=== PATIENT | male | born 1945 | race Caucasian/White ===

== ENCOUNTER → 2019-04-07 | Outpatient (CLI) | payer MEDICARE, OTHER ==
[~2019-04-07] MED LIST: ALBU90AE INH; ASCO100019 PO; BIOT25005 PO; CELE200C PO; CHOL5000 PO; CYAN1TAB29 PO; EMPA10TA PO; INSU100I13 SC; METF500T17 PO; MULT-717 PO; PANT40TA5 PO; PITA4TAB2 PO; POTA99TA2 PO; RAMI5CAP57 PO; TEST75GE TP; TICA60TA PO; UBID1CAP43 PO; [UNRECOGNIZED DRUG - CODE] PO; [UNRECOGNIZED DRUG - OTHER] PO; curcumin PO
[2019-04-07 11:26] LABS: BASOPHILS # (AUTO) 0.03 x10^3/uL (0-0.1); BASOPHILS % (AUTO) 1 % (0-1); EOSINOPHILS % (AUTO) 4 % (1-7); LYMPHOCYTES # (AUTO) 0.89 x10^3/uL (1-3.4); LYMPHOCYTES % (AUTO) 17 % (22-44); MD NO; MEAN CORPUSCULAR HEMOGLOBIN 30.9 pg (27.5-34.5); MEAN CORPUSCULAR HGB CONC 32.5 g/dL (33.2-36.2); MEAN CORPUSCULAR VOLUME 95.2 fL (81-97); MEAN PLATELET VOLUME 8.2 fL (7.4-10.4); MONOCYTES # (AUTO) 0.49 x10^3/uL (0.2-0.8); MONOCYTES % (AUTO) 9 % (2-9); NEUTROPHILS # (AUTO) 3.71 x10^3/uL (1.8-6.8); NEUTROPHILS % (AUTO) 70 % (42-75); PLATELET COUNT 247 x10^3/uL (130-400); RED BLOOD COUNT 5.38 x10^6/uL (4.38-5.82); RED CELL DISTRIBUTION WIDTH 16.1 % (9.4-14.8)
[2019-04-07 11:33] LABS: INTERNATIONAL NORMALIZED RATIO 1.02 (0.93-1.1); PROTHROMBIN TIME 10.7 Seconds (9.6-11.5)
[2019-04-07 11:35] LABS: ALANINE AMINOTRANSFERASE 23 U/L (12-78); ALBUMIN 3.9 g/dL (3.4-5.0); ANION GAP 6 mmol/L (5-15); CALCIUM 9.1 mg/dL (8.5-10.1); CHLORIDE 107 mmol/L (98-107); CREATININE 1.05 mg/dL (0.7-1.3)
[2019-04-07 11:37] LABS: ALKALINE PHOSPHATASE 57 U/L (45-117); BILIRUBIN,TOTAL 0.5 mg/dL (0.2-1.0); TOTAL PROTEIN 7.2 g/dL (6.4-8.2)
[2019-04-07 12:29] LABS: HEMOGLOBIN A1C 7.7 % (4.2-6.3)
== END | disposition home or self-care (01) ==
LOC: STAR 10:06
PROVIDERS: ATTEND Orthopaedic Surgery
DX: T84.84XS Pain due to internal orthopedic prosthetic devices, implants and grafts, sequela (principal); M25.552 Pain in left hip; Z96.652 Presence of left artificial knee joint
CPT/HCPCS: 36415; 80053; 83036; 85025; 85610; 85730; 87081; 87389; 93005

== ENCOUNTER 2019-04-17 07:30 | Inpatient (IN) | payer MEDICARE, OTHER ==
[~2019-04-17] VITALS: Ht 175.3 cm; Wt 73.2 kg
[2019-04-17] MEDS ORDERED: KETOROLAC 60 MG/2 ML ONE (10:21)
[2019-04-17] MEDS ORDERED: TRANEXAMIC ACID 100 MG/ML, 10ML ONE ×4 (10:22)
[2019-04-17] MEDS ORDERED: EPINEPHRINE 1 MG/ML, 1ML ONE (10:22)
[2019-04-17] MEDS ORDERED: VANCOMYCIN 1,000 MG ONE (10:22)
[2019-04-17] MEDS ORDERED: SODIUM CHLORIDE 0.9% 50 ML ONE (10:22)
[2019-04-17] MEDS ORDERED: ROPIvacaine/PF 0.2%, 20 ML ONE ×2 (10:25→14:17)
[2019-04-17 13:12] VITALS: BP 147/70
[2019-04-17] MEDS ORDERED: LACTATED RINGERS 1,000 ML IV SCH (13:15)
[2019-04-17] MEDS ORDERED: VANCOMYCIN PER PHARMACY MC ONE (13:30)
[2019-04-17] MEDS ORDERED: ACETAMINOPHEN 500 MG TABLET PO ONE (13:30)
[2019-04-17] MEDS ORDERED: GABAPENTIN 300 MG CAPSULE PO ONE (13:30)
[2019-04-17] MEDS ORDERED: INSULIN REGULAR 100 UNITS/ML, 3ML VIAL SQ-INSULIN ONE (14:00)
[2019-04-17] MEDS ORDERED: VANCOMYCIN 1,300 MG in SODIUM CHLORIDE 0.9% 250 ML IV ONE (14:00)
[2019-04-17] MEDS ORDERED: INSULIN SINGLE DOSE, ER SQ-INSULIN ONE (14:05)
[2019-04-17] MEDS ORDERED: FENTANYL PF 250 MCG/5ML ONE ×2 (14:16→16:21)
[2019-04-17] MEDS ORDERED: MIDAZOLAM 1 MG/ML, 2ML ONE (14:16)
[2019-04-17] MEDS ORDERED: CEFAZOLIN 1,000 MG ONE (14:17)
[2019-04-17] MEDS ORDERED: GLYCOPYRROLATE 0.2MG/1ML, 5ML ONE (14:17)
[2019-04-17] MEDS ORDERED: ROCURONIUM 10MG/ML,5ML ONE (14:17)
[2019-04-17] MEDS ORDERED: PROPOFOL 10 MG/ML, 20ML ONE (14:17)
[2019-04-17] MEDS ORDERED: NEOSTIGMINE 1 MG/ML, 10ML ONE (14:17)
[2019-04-17] MEDS ORDERED: PROMETHAZINE 25 MG/ML, 1ML IV PRN (16:00)
[2019-04-17] MEDS ORDERED: MORPHINE SULFATE 4 MG/ML, 1ML IVPush PRN (16:00)
[2019-04-17] MEDS ORDERED: HALOPERIDOL 5 MG/ML IV PRN (16:00)
[2019-04-17] MEDS ORDERED: hydrALAzine 20 MG/ML, 1ML IV PRN (16:00)
[2019-04-17] MEDS ORDERED: LABETALOL 5MG/ML, 20ML IV PRN (16:00)
[2019-04-17] MEDS: INSULIN REGULAR 100 UNITS/ML, 3ML VIAL SQ-INSULIN SCH ×2 (16:00→22:42)
[2019-04-17] MEDS ORDERED: FENTANYL PF 100 MCG/2ML IV PRN (16:00)
[2019-04-17] MEDS ORDERED: POLYETHYLENE GLYCOL 17 GM PACKET PO PRN (16:00)
[2019-04-17] MEDS ORDERED: OXYcodone 5 MG/5 ML ORAL.SOL UDC PO PRN (16:00)
[2019-04-17] MEDS ORDERED: HYDROmorphone 2 MG/ML, 1ML IVPush PRN (16:00)
[2019-04-17] MEDS ORDERED: ONDANSETRON 2MG/ML, 2ML IV PRN (16:00)
[2019-04-17] MEDS ORDERED: PSYLLIUM PACKET PO PRN (16:00)
[2019-04-17] MEDS ORDERED: MEPERIDINE/PF 25MG/ML,1ML IVPush PRN (16:00)
[2019-04-17] MEDS ORDERED: KETOROLAC 30 MG/1 ML IV SCH (16:00)
[2019-04-17] MEDS ORDERED: PHENYLEPHRINE 10 MG/ML ONE (16:07)
[2019-04-17] MEDS ORDERED: METOPROLOL 1 MG/ML, 5ML ONE (16:59)
[2019-04-17] MEDS ORDERED: TRANEXAMIC ACID 1,000 MG in SODIUM CHLORIDE 0.9% 100 ML IVPB ONE (19:03)
[2019-04-17] MEDS ORDERED: hydrALAzine 20 MG/ML, 1ML ONE (19:05)
[2019-04-17] MEDS ORDERED: KETOROLAC 30 MG/1 ML ONE (19:05)
[2019-04-17] MEDS ORDERED: DIPHENHYDRAMINE 25 MG CAPSULE PO PRN (21:00)
[2019-04-17] MEDS ORDERED: LISINOPRIL 10 MG TABLET PO SCH (21:00)
[2019-04-17] MEDS ORDERED: PROMETHAZINE 25 MG/ML, 1ML IM PRN (21:00)
[2019-04-17] MEDS ORDERED: DIPHENHYDRAMINE 50 MG/ML, 1ML IVPush PRN (21:00)
[2019-04-17] MEDS ORDERED: MAGNESIUM HYDROXIDE 8%, 30ML UDC PO PRN (21:00)
[2019-04-17] MEDS ORDERED: SENNA/DOCUSATE TABLET PO PRN (21:00)
[2019-04-17] MEDS ORDERED: ACETAMINOPHEN 325 MG TABLET PO PRN (21:00)
[2019-04-17] MEDS ORDERED: HYDROmorphone 1 MG/ML, 1ML INJ IVPush PRN (21:00)
[2019-04-17] MEDS ORDERED: ONDANSETRON ODT 4 MG PO PRN (21:00)
[2019-04-17] MEDS ORDERED: ATORVASTATIN 20 MG TABLET PO SCH (21:00)
[2019-04-17] MEDS ORDERED: OXYcodone IR 5MG TABLET PO PRN (21:00)
[2019-04-17] MEDS ORDERED: ALUMINUM/MAG/SIMETHICONE 30 ML UDC PO PRN (21:00)
[2019-04-17] MEDS ORDERED: ALBUTEROL SULFATE 2.5 MG/3 ML NPPB PRN (21:00)
[2019-04-17] MEDS: [UNRECOGNIZED DRUG - OTHER] IV SCH (22:15)
[2019-04-17] MEDS: PANTOPROZOLE 40MG TABLET PO SCH (22:15)
[2019-04-17] MEDS: DOCUSATE 100 MG CAPSULE PO SCH (22:15)
[2019-04-18 00:20] VITALS: BP 136/78
[2019-04-18] MEDS: CEFAZOLIN PMX 1GM/50ML 50 ML IVPB SCH ×2 (00:26→07:37)
[2019-04-18] MEDS ORDERED: VANCOMYCIN PMX 1GM/200ML 200 ML IVPB ONE (01:30)
[2019-04-18] MEDS ORDERED: KETOROLAC 30 MG/1 ML IV SCH (03:00)
[2019-04-18 04:35] VITALS: BP 135/73
[2019-04-18] MEDS ORDERED: DEXAMETHASONE 4 MG/ML, 1ML IVPush ONE (06:00)
[2019-04-18] MEDS ORDERED: TICAGRELOR 90 MG TABLET PO SCH (06:00)
[2019-04-18] MEDS: PANTOPROZOLE 40MG TABLET PO SCH (07:37)
[2019-04-18] MEDS: DOCUSATE 100 MG CAPSULE PO SCH (07:37)
[2019-04-18 08:09] VITALS: BP 113/57
[2019-04-18] MEDS: INSULIN REGULAR 100 UNITS/ML, 3ML VIAL SQ-INSULIN SCH (08:33)
[2019-04-18] MEDS: [UNRECOGNIZED DRUG - OTHER] IV SCH (09:00)
[2019-04-18] MEDS ORDERED: TAMSULOSIN 0.4 MG CAP.ER.24H PO SCH (09:00)
== END 2019-04-18 10:30 | disposition home or self-care (01) | DRG 468 ==
LOC: ORIP 12:10 → 4NE 20:13 → DCLOUNGE 04-18 10:15
PROVIDERS: ADMIT Orthopaedic Surgery; ATTEND Orthopaedic Surgery
PROC: 0SRD0J9 Replacement of Left Knee Joint with Synthetic Substitute, Cemented, Open Approach (ICD-10-PCS; 2019-04-17)
PROC: 3E0T3BZ Introduction of Anesthetic Agent into Peripheral Nerves and Plexi, Percutaneous Approach (ICD-10-PCS; 2019-04-17)
PROC: 0SPD0JZ Removal of Synthetic Substitute from Left Knee Joint, Open Approach (ICD-10-PCS; principal; 2019-04-17 13:15)
DX: T84.033A Mechanical loosening of internal left knee prosthetic joint, initial encounter (principal); T84.053A Periprosthetic osteolysis of internal prosthetic left knee joint, initial encounter; Y79.2 Prosthetic and other implants, materials and accessory orthopedic devices associated with adverse incidents; M19.90 Unspecified osteoarthritis, unspecified site; E11.9 Type 2 diabetes mellitus without complications; I25.10 Atherosclerotic heart disease of native coronary artery without angina pectoris; K21.9 Gastro-esophageal reflux disease without esophagitis; I10 Essential (primary) hypertension; Y92.89 Other specified places as the place of occurrence of the external cause; Z79.4 Long term (current) use of insulin
CPT/HCPCS: 36415; 82962; 85014; 85018; C1713; G0378; J0171; J0690; J1100; J1815; J1885; J2250; J2405; J2704; J2710; J2795; J3010; J3370; J3480; C1776; J0360; J2370; J7050; J7120

== ENCOUNTER 2019-11-21 07:39 | Outpatient (CLI) | payer MEDICARE, OTHER ==
[2019-11-22] MEDS ORDERED: TEST75GE TP (11:40)
== END 2019-11-21 23:59 | disposition home or self-care (01) ==
LOC: CFH 07:39
PROVIDERS: ATTEND Internal Medicine Cardiovascular Disease
DX: I21.29 ST elevation (STEMI) myocardial infarction involving other sites (principal); I25.9 Chronic ischemic heart disease, unspecified; I25.10 Atherosclerotic heart disease of native coronary artery without angina pectoris
CPT/HCPCS: 78452; 93017; A9502

== ENCOUNTER 2019-11-22 10:49 | Observation (INO) | payer MEDICARE, OTHER ==
[~2019-11-22] VITALS: Ht 175.3 cm; Wt 71.5 kg
[2019-11-22 11:08] VITALS: BP 159/67
[2019-11-22 11:27] LABS: BASOPHILS # (AUTO) 0.02 x10^3/uL (0-0.1); BASOPHILS % (AUTO) 1 % (0-1); EOSINOPHILS # (AUTO) 0.28 x10^3/uL (0-0.4); EOSINOPHILS % (AUTO) 6 % (1-7); LYMPHOCYTES # (AUTO) 1.08 x10^3/uL (1-3.4); LYMPHOCYTES % (AUTO) 21 % (22-44); MD NO; MEAN CORPUSCULAR HEMOGLOBIN 31.1 pg (27.5-34.5); MEAN CORPUSCULAR HGB CONC 33.1 g/dL (33.2-36.2); MEAN CORPUSCULAR VOLUME 94.2 fL (81-97); MEAN PLATELET VOLUME 8.3 fL (7.4-10.4); MONOCYTES # (AUTO) 0.41 x10^3/uL (0.2-0.8); MONOCYTES % (AUTO) 8 % (2-9); NEUTROPHILS # (AUTO) 3.28 x10^3/uL (1.8-6.8); NEUTROPHILS % (AUTO) 65 % (42-75); PLATELET COUNT 248 x10^3/uL (130-400); RED BLOOD COUNT 4.59 x10^6/uL (4.38-5.82); RED CELL DISTRIBUTION WIDTH 14.6 % (9.4-14.8)
[2019-11-22] MEDS ORDERED: TEST75GE TP (11:40)
[2019-11-22 11:41] LABS: ANION GAP 5 mmol/L (5-15); CHLORIDE 107 mmol/L (98-107); CREATININE 0.88 mg/dL (0.7-1.3)
[2019-11-22] MEDS ORDERED: MIDAZOLAM 1 MG/ML, 5ML ONE (12:21)
[2019-11-22] MEDS ORDERED: VERAPAMIL 2.5 MG/ML, 2ML ONE (12:21)
[2019-11-22] MEDS ORDERED: LIDOCAINE-MPF 1%, 5ML ONE (12:21)
[2019-11-22] MEDS ORDERED: BIVALIRUDIN 250 MG ONE (12:21)
[2019-11-22] MEDS ORDERED: TICAGRELOR 90 MG TABLET ONE ×2 (12:21→13:33)
[2019-11-22] MEDS ORDERED: HEPARIN 1,000 UNITS/ML, 10ML ONE (12:21)
[2019-11-22] MEDS ORDERED: FENTANYL PF 100 MCG/2ML ONE (12:21)
[2019-11-22] MEDS ORDERED: BIVALIRUDIN 250 MG in SODIUM CHLORIDE 0.9% 50 ML IV SCH (13:37)
[2019-11-22] MEDS ORDERED: ZOLPIDEM 5MG TABLET PO PRN (14:00)
[2019-11-22] MEDS ORDERED: TEMPLATE NON-FORMULARY MED. (Albuterol Sulfate (Proair Respiclick) 0 PUFF) INH SCH (14:00)
[2019-11-22 14:59] VITALS: BP 140/59
[2019-11-22] MEDS: SODIUM CHLORIDE 0.9% 1,000 ML IV SCH ×2 (15:03→21:37)
[2019-11-22] MEDS ORDERED: ALBUTEROL SULFATE 2.5 MG/3 ML NPPB PRN (15:30)
[2019-11-22 16:12] VITALS: BP 98/62
[2019-11-22] MEDS ORDERED: ATORVASTATIN 20 MG TABLET PO SCH (21:00)
[2019-11-22] MEDS ORDERED: RAMIPRIL 5 MG CAP PO SCH (21:00)
[2019-11-22] MEDS ORDERED: TEMPLATE NON-FORMULARY MED. (Biotin** 5,000 MG) PO SCH (21:00)
[2019-11-22] MEDS: metFORMIN 500 MG TABLET PO SCH (21:00)
[2019-11-22] MEDS ORDERED: ASCORBIC ACID 500 MG TABLET PO SCH (21:00)
[2019-11-22] MEDS ORDERED: INSULIN GLARGINE 100 UNITS/ML, PEN SQ-INSULIN SCH (21:00)
[2019-11-22] MEDS ORDERED: CHOLECALCIFEROL 1,000 UNIT TABLET PO SCH (21:00)
[2019-11-22] MEDS ORDERED: TEMPLATE NON-FORMULARY MED. (Potassium Gluconate** 99 MG) PO SCH (21:00)
[2019-11-22 21:19] VITALS: BP 146/69
[2019-11-22] MEDS: TICAGRELOR 90 MG TABLET PO SCH (21:27)
[2019-11-23 02:25] VITALS: BP 136/45
[2019-11-23 05:53] LABS: ANION GAP 5 mmol/L (5-15); CALCIUM 9.1 mg/dL (8.5-10.1); CHLORIDE 110 mmol/L (98-107)
[2019-11-23 05:54] LABS: CREATININE 0.78 mg/dL (0.7-1.3)
[2019-11-23 07:20] VITALS: BP 136/83
[2019-11-23] MEDS ORDERED: TICA90TA PO (08:53)
[2019-11-23] MEDS ORDERED: PANTOPRAZOLE 40MG TABLET PO SCH (09:00)
[2019-11-23] MEDS ORDERED: MULTIVITAMINS/MINERALS TABLET PO SCH (09:00)
[2019-11-23] MEDS ORDERED: ASPIRIN 81 MG TABLET EC PO SCH (09:00)
[2019-11-23] MEDS ORDERED: FOLIC ACID 1 MG TABLET PO SCH (09:00)
[2019-11-23] MEDS ORDERED: CYANOCOBALAMIN 1,000 MCG TABLET PO SCH ×2 (09:00)
[2019-11-23] MEDS: TICAGRELOR 90 MG TABLET PO SCH (09:04)
[2019-11-23] MEDS: metFORMIN 500 MG TABLET PO SCH (09:05)
== END 2019-11-23 09:47 | disposition home or self-care (01) ==
LOC: CACL 10:49 → 5SO 13:37 → CACL 13:37 → 5SO 14:55 → DCLOUNGE 11-23 09:38
PROVIDERS: ADMIT Internal Medicine Cardiovascular Disease; ATTEND Internal Medicine Cardiovascular Disease
DX: I25.10 Atherosclerotic heart disease of native coronary artery without angina pectoris (principal); T82.855A Stenosis of coronary artery stent, initial encounter; I25.82 Chronic total occlusion of coronary artery; E78.5 Hyperlipidemia, unspecified; E11.9 Type 2 diabetes mellitus without complications; Z79.899 Other long term (current) drug therapy; Z95.9 Presence of cardiac and vascular implant and graft, unspecified; Y83.1 Surgical operation with implant of artificial internal device as the cause of abnormal reaction of the patient, or of later complication, without mention of misadventure at the time of the procedure
CPT/HCPCS: 36415; 78452; 80048; 82962; 85025; 93005; 93017; 93458; 99156; A9502; C1725; C1769; C1874; C1887; C1894; C9600; G0378; J0583; J1644; J1815; J2250; J3010; Q9967